=== PATIENT | female | born 1960 | race Asian ===

== ENCOUNTER → 2017-01-06 | Outpatient (CLI) | payer BC ==
[~2017-01-06] MED LIST: BND25X PO; PRED50TA PO; ZNTT/150 PO
--- NOTE | 2017-01-06 09:34 | DIAGNOSTIC IMAGING REPORT ---
C-SPINE ROUTINE 4 OR 5 VIEWS CLINICAL HISTORY: Neck pain. COMPARISON STUDY: No previous studies for comparison. FINDINGS: Visualization of the cervical spine is adequate. Vertebral body heights are maintained. There is no fracture or suspicious lesion. There is minimal retrolisthesis of C4 on C5. There is mild multilevel disc space narrowing with osteophytosis and facet arthrosis within the cervical spine. Facet joints are intact. IMPRESSION: 1. Mild multilevel degenerative disc disease and facet arthrosis of the cervical spine. 2. No cervical spine fracture. Electronically signed by: Taurus Stone M.D. 01/06/2017 9:32 AM Dictated Date/Time: 01/06/2017 9:31 AM
--- NOTE | 2017-01-06 09:57 | DIAGNOSTIC IMAGING REPORT ---
THYROID ULTRASOUND CLINICAL HISTORY: Thyroid nodules. COMPARISON STUDY: Thyroid ultrasound January 08, 2016 and February 15, 2008. TECHNIQUE: Sonography of the thyroid gland was performed. FINDINGS: The right thyroid lobe measures 3.8 x 1.6 x 1.3 cm and the left lobe measures 4.4 x 1 x 1.2 cm. Multiple similar-appearing cystic and solid nodules with a lattice-like appearance are again noted. The largest is a left lobe nodule that measures 1 x 0.4 x 0.8 cm. This is similar to prior exam. IMPRESSION: No significant change in several thyroid nodules since prior exam of January 08, 2016. None of these nodules have suspicious imaging characteristics. Electronically signed by: Taurus Stone M.D. 01/06/2017 9:56 AM Dictated Date/Time: 01/06/2017 9:54 AM
== END | disposition home or self-care (01) ==
LOC: C.ULTRBC 08:59
PROVIDERS: ATTEND Family Medicine
DX: M50.30 Other cervical disc degeneration, unspecified cervical region (principal); D34 Benign neoplasm of thyroid gland; E04.1 Nontoxic single thyroid nodule

== ENCOUNTER → 2017-06-11 | Outpatient (CLI) | payer BC ==
--- NOTE | 2017-06-11 16:00 | DIAGNOSTIC IMAGING REPORT ---
RIGHT SHOULDER MIN 2 VIEWS ROUTINE CLINICAL HISTORY: 57 years-old Female presenting with bilateral shoulder pain. TECHNIQUE: Internal rotation, external rotation, and Grashey views of the right shoulder were obtained. COMPARISON: None. FINDINGS: Glenohumeral and acromioclavicular joints congruent. Humeral head normal in morphology. No abnormality of the glenoid fossa. No acute fracture or subluxation. Visualized portion of the right hemithorax within normal limits. IMPRESSION: No acute osseous injury of the right shoulder. Electronically signed by: Mahesh Carranza M.D. 06/11/2017 3:58 PM Dictated Date/Time: 06/11/2017 3:57 PM
== END | disposition home or self-care (01) ==
LOC: C.RAD1850 15:34
PROVIDERS: ATTEND Family Medicine
DX: M25.511 Pain in right shoulder (principal)

== ENCOUNTER → 2017-08-24 | Outpatient (CLI) | payer BC ==
--- NOTE | 2017-08-24 11:05 | DIAGNOSTIC IMAGING REPORT ---
CERVICAL SPINE 4 VIEWS CLINICAL HISTORY: Neck and right shoulder pain. FINDINGS: AP, lateral, and bilateral oblique views of the cervical spine are compared to study dated 01/06/2017. The skeletal structures are osteopenic. There is no radiographic evidence of fracture or subluxation. Vertebral body height is maintained throughout the cervical spine. There is minimal anterolisthesis at C3-C4 and minimal retrolisthesis at C4-C5 and C5-C6. There is straightening of the cervical lordosis with mild reversal centered at C4. The spinolaminar line is preserved. The atlantodental articulation appears maintained on the lateral view. Small anterior osteophytes are seen in the mid to lower cervical spine. Mild disc space narrowing is seen at C4-C5 and C5-C6. Small posterior disc osteophyte complexes at these levels may contribute to minimal acquired compromise of the central canal. No significant neural foraminal stenosis is seen on the oblique views. The prevertebral soft tissues are within normal limits. Partially imaged apical lung parenchyma appears clear. IMPRESSION: 1. No acute bony abnormality is seen involving the cervical spine. 2. Osteopenia and mild spondylotic change as above. This is greatest at C4-C5 and C5-C6. Dictated: 08/24/2017 10:47 AM Transcribed: 08/24/2017 11:05 AM [place] Electronically signed by: Vu Mercedes M.D. 08/24/2017 11:11 AM Dictated Date/Time: 08/24/2017 10:47 AM
== END | disposition home or self-care (01) ==
LOC: C.RDSM 13:30
PROVIDERS: ATTEND Family Medicine
DX: M25.511 Pain in right shoulder (principal); M85.88 Other specified disorders of bone density and structure, other site

== ENCOUNTER → 2018-02-17 | Outpatient (CLI) | payer BC ==
[~2018-02-17] MED LIST changes: +RANI150T85 PO; -ZNTT/150 PO
--- NOTE | 2018-02-17 12:51 | DIAGNOSTIC IMAGING REPORT ---
THYROID ULTRASONOGRAPHY CLINICAL HISTORY: THYROID NODULES COMPARISON STUDY: January 06, 2017 FINDINGS: The right lobe measures 39 x 16 x 12 mm. There is a mid pole nodule measuring 8 x 6 x 5 mm. This previously measured 7 x 6 x 4 mm. The left lobe measures 46 x 14 x 9 mm. There is a lower pole nodule measuring 10 x 7 x 5 mm. This previously measured 10 x 8 x 4 mm. The dominant nodules in each lobe image demonstrate a low suspicion spongiform morphology. Additional tiny nodules are also present. IMPRESSION: Multinodular thyroid gland, unchanged from the preceding study. No nodule demonstrates suspicious morphology Electronically signed by: Mynor Diehl M.D. 02/17/2018 12:50 PM Dictated Date/Time: 02/17/2018 12:48 PM
== END | disposition home or self-care (01) ==
LOC: C.ULTRBC 12:10
PROVIDERS: ATTEND Family Medicine
DX: D34 Benign neoplasm of thyroid gland (principal)

== ENCOUNTER → 2018-04-01 | Outpatient (CLI) | payer BC ==
--- NOTE | 2018-04-01 15:34 | MAMMOGRAPHY REPORT ---
BILATERAL DIGITAL SCREENING MAMMOGRAM TOMOSYNTHESIS WITH CAD: 04/01/2018 CLINICAL HISTORY: Routine screening. Patient has no complaints. TECHNIQUE: Breast tomosynthesis in addition to standard 2D mammography was performed. Current study was also evaluated with a Computer Aided Detection (CAD) system. COMPARISON: Comparison is made to exams dated: 02/20/2015 mammogram, 02/16/2014 mammogram, 08/12/2012 julieth mogram, 08/12/2011 mammogram, 08/08/2010 mammogram - [facility], and 06/29/2009. BREAST COMPOSITION: The tissue of both breasts is heterogeneously dense, which may obscure small mas ses. FINDINGS: No suspicious masses, calcifications, or areas of architectural distortion are noted in ei ther breast. There has been no significant interval change compared to prior exams. Bilateral benign -appearing calcifications are not significantly changed. IMPRESSION: ACR BI-RADS CATEGORY 2: BENIGN There is no mammographic evidence of malignancy. A 1 year screening mammogram is recommended. The pa tient will receive written notification of the results. Approximately 10% of breast cancers are not detected with mammography. A negative mammographic report should not delay biopsy if a clinically suggestive mass is present. Ifeoma Roland M.D. /:04/01/2018 14:51:23 Edger Machine Operator: Светлана BALDERRAMA(Jeramy)(M), [facility] letter sent: Normal 1/2 BI-RADS Code: ACR BI-RADS Category 2: Benign
== END | disposition home or self-care (01) ==
LOC: C.MAMM 13:38
PROVIDERS: ATTEND Family Medicine
DX: Z12.31 Encounter for screening mammogram for malignant neoplasm of breast (principal)